=== PATIENT | male | born 1975 | race Caucasian/White ===

== ENCOUNTER 2016-09-22 11:13 | Emergency (ER) | payer BC ==
[2016-09-22 11:21] VITALS: RESP 18; TEMP 97.5; O2SAT 98
[2016-09-22] MEDS ORDERED: LETS SOLN TOPICAL 1 EA SYR TP ONE ×3 (11:27→11:44)
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
[2016-09-22] MEDS ORDERED: ACETAMINOPHEN 325 MG TAB ONE (13:39)
[2016-09-22] MEDS ORDERED: ACETAMINOPHEN 325 MG TAB PO ONE (13:41)
[2016-09-22 14:41] VITALS: BP 112/58; PULSE 72
== END 2016-09-22 14:41 | disposition home or self-care (01) ==
PROC: 0HQ0XZZ Repair Scalp Skin, External Approach (ICD-10-PCS; principal; 2016-09-22)
DX: S22.31XA Fracture of one rib, right side, initial encounter for closed fracture (principal); S06.0X9A Concussion with loss of consciousness of unspecified duration, initial encounter; S01.01XA Laceration without foreign body of scalp, initial encounter; S40.211A Abrasion of right shoulder, initial encounter; S40.212A Abrasion of left shoulder, initial encounter; S30.810A Abrasion of lower back and pelvis, initial encounter; S70.211A Abrasion, right hip, initial encounter; V17.4XXA Pedal cycle driver injured in collision with fixed or stationary object in traffic accident, initial encounter; Y92.410 Unspecified street and highway as the place of occurrence of the external cause; Y99.8 Other external cause status; Y93.89 Activity, other specified

== ENCOUNTER → 2016-11-14 | Outpatient (CLI) | payer BC | LOC: BMCIMAGING 13:28 | PROVIDERS: ATTEND Internal Medicine | DX: S22.31XD Fracture of one rib, right side, subsequent encounter for fracture with routine healing (principal) ==